=== PATIENT | male | born 1965 | race Caucasian/White ===

== ENCOUNTER 2022-09-27 23:13 | Emergency (ER) | payer BC, SELFPAY ==
--- NOTE | 2022-09-27 23:19 | ECG_ITS ---
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 Measurements Intervals [place] Rate: 99 P: 31 CO: 166 QRS: 22 QRSD: 94 T: 72 QT: 323 QTc: 415 Interpretive Statements SINUS RHYTHM WITH SINUS ARRHYTHMIA POSSIBLE RIGHT VENTRICULAR CONDUCTION DELAY [RSR (QR) IN V1/V2] MODERATE ST DEPRESSION [0.05+ mV ST DEPRESSION] No previous ECG available for comparison Electronically Signed On 09-29-2022 1:31:15 CDT by Lynda Griffiths M.D. [id number]
[2022-09-27 23:20] VITALS: BP 148/93; PULSE 101; RESP 16; O2SAT 92; BMI 31.4
--- NOTE | 2022-09-27 23:20 | XRR_ITS ---
PROCEDURE INFORMATION: Exam: XR Chest Exam date and time: 09/27/2022 11:31 PM Age: 56 years old Clinical indication: Pain; Chest pressure; Additional info: Cp TECHNIQUE: Imaging protocol: Radiologic exam of the chest. Views: 1 view. COMPARISON: No relevant prior studies available. FINDINGS: Lungs: Unremarkable. No consolidation. Pleural spaces: Unremarkable. No pleural effusion. No pneumothorax. Heart/Mediastinum: Unremarkable. No cardiomegaly. Bones/joints: Unremarkable. XR/XR chest 1V portable [id number] IMPRESSION: No acute findings.
--- NOTE | 2022-09-27 23:23 | W.ED.CHESTPA ---
HPI - Chest Pain General: Chief Complaint: Chest Pain Stated Complaint: CP Time Seen by Provider: 09/27/22 23:16 Source: patient and EMS Mode of arrival: EMS Limitations: no limitations History of Present Illness: 56-year-old male who states that he has been having chest pain throughout the day today starting around noon he states over the last 45 minutes it got much worse he states is a real tight sharp pain in the center of his chest it was a 9 out of 10 earlier he states he has felt like he cannot get a deep breath in either he denies any cough or fever he did receive aspirin nitro in route states the pain is lessened but still there he rates it a 6 out of 10 he states he was a former smoker roughly 25 years ago no history of heart disease does have high blood pressure. Associated symptoms: Reports dyspnea; Deny abdominal pain, fever(s), nausea or vomiting Review of Systems Const: Denies: fever(s), chills, body aches or change in appetite Eyes: Denies: eye discomfort ENMT: Denies: throat pain or dental pain Card: Reports: chest pain Resp: Reports: dyspnea GI: Denies: abdominal pain, nausea, vomiting or diarrhea Musc: Denies: neck pain or back pain Skin/Breast: Denies: rash Neuro: Denies: headache(s) Psych: Denies: depression PFSH ED PFSH: Medical History (Updated 09/28/22 @ 03:43 by Elvin Parish MD) Hypertension Social History (Updated 09/27/22 @ 23:24 by Elvin Parish MD) Smoking and tobacco status: former smoker Substance/Drug Use: never Physical Exam Const: COMMON NORMALS: patient oriented x3 HENMT: COMMON NORMALS: normocephalic and atraumatic HEAD & SCALP: normocephalic and atraumatic Eye: COMMON NORMALS: conjunctivae normal CONJUNCTIVA: Yes conjunctivae normal Neck/C-Spine: COMMON NORMALS: full ROM and supple Chest: COMMONS NORMALS: normal inspection of the chest and normal palpation of entire chest wall Resp: COMMON NORMALS: normal respiratory effort, No retractions, No use of accessory muscles and clear to auscultation bilaterally AUSCULTATION: clear to auscultation bilaterally Cardio: COMMON NORMALS: regular rhythm and No murmurs present (Cardio) RATE: tachycardic RHYTHM: regular rhythm GI: COMMON NORMALS: Normal to inspection, nondistended, normoactive bowel sounds present, Soft to palpation, non-tender and no masses PALPATION: Yes Soft to palpation Extremity: COMMON NORMALS: normal to inspection and full ROM Neuro: COMMON NORMALS: patient oriented x3, moves all extremities and no focal motor deficits Psych: COMMON NORMALS: mental status grossly normal, Normal thought process present and cooperative THOUGHT PROCESS: Normal thought process present Skin: COMMON NORMALS: no rashes or lesions noted and no wounds GENERAL SKIN EXAM: no rashes or lesions noted Course Vital Signs: Vital signs: Vital Signs Pulse Rate 82 09/28/22 02:45 Respiratory Rate 16 09/28/22 02:45 Blood Pressure 120/84 09/28/22 02:45 Pulse Oximetry 94 09/28/22 02:45 Oxygen Delivery Me thod Nasal Cannula 09/28/22 00:55 Oxygen Flow Rate 2 09/28/22 00:55 MDM - Chest Pain Medical Decision Making Patient presents here with chest pains atypical in nature its with deep breaths that sounds pleuritic in nature CTA showed no signs of pulmonary embolism troponins are normal he is in no signs of acute coronary syndrome we will get him follow-up with a PCP we will prescribe him Naprosyn he is return if his pain worsens he understands agrees to plan. Lab Data 09/27/22 23:30 09/27/22 23:30 Radiology Impressions Chest X-Ray 09/27/22 23:20 IMPRESSION: No acute findings. Chest CTA 09/28/22 00:58 IMPRESSION: 1. No CTA evidence of pulmonary embolism, thoracic aortic aneurysm or thoracic aortic dissection. 2. Small lung volumes with mild hypoaeration of the lungs and bilateral basilar atelectasis. Abdomen/Pelvis CT 09/28/22 01:23 IMPRESSION: 1. No acute abnormality seen on the non-contrast abdominal and pelvic CT. 2. Mild constipation. 3. Other chronic changes, as noted above. Laboratory Results WBC 9.8 10^3/uL (4.0-10.0) 09/27/22 23:30 RBC 5.12 10^6/uL (4.1-5.3) 09/27/22 23:30 Hgb 15.2 g/dL (11.7-16.6) 09/27/22 23:30 Hct 43.1 % (42.0-52.0) 09/27/22 23: MCV 84.2 fl (80-94) 09/27/22 23: MCH 29.7 pg (28.0-34.0) 09/27/22: MCHC 35.3 g/dL (30.0-36.0) 09/27/22: RDW 12.8 % (12.1-15.1) 09/27/22: Plt Count 215 10^3/cmm (130-400) 09/27/22: MPV 9.4 fL (7.4-10.4) 09/27/22: Neut % (Auto) 70.5 % 09/27/22: Lymph % (Auto) 17.6 % 09/27/22: [place] % (Auto) 8.5 % 09/27/22: Eos % (Auto) 2.4 % 09/27/22: Baso % (Auto) 0.6 % 09/27/22 Neut # (Auto) 6.89 10^3/uL (1.8-7.7) 09/27/22: Lymph # (Auto) 1.7 10^3/uL (0.8-4.8) 09/27/22: [place] # (Auto) 0.8 10^3/uL (0.2-0.9) 09/27/22: Eos # (Auto) 0.2 10^3/uL (0.0-0.8) 09/27/22 Baso # (Auto) 0.1 10^3/uL (0.0-0.1) 09/27/22: Nucleated RBC % (auto) 0 % 09/27/22 Nucleated RBCs # 0.0 /100WBC 09/27/22: PT 13.50 SECONDS (12.1-14.9) 09/27/22: INR 1.00 (0.8-1.2) 09/27/22 23: D-Dimer 0.37 ug/mIFEU (0-0.59) 09/27/22 23: Specimen Type Arterial 09/28/22 00:42 Sample Site Brachial, right 09/28/22 00:42 ABG pH 7.39 (7.35-7.45) 09/28/22 00:42 ABG pCO2 40.5 mmHg (35-45) 09/28/22 00:42 ABG pO2 75.7 mmHg (80.0-100.0) L 09/28/22 00:42 ABG HCO3 24.7 mmol/L (22-26) 09/28/22 00:42 ABG Base Excess -0.2 mmol/L (-2.0-2.0) 09/28/22 00:42 Tone Test Pos 09/28/22 00:42 Hematocrit 47.4 % (42-52) 09/28/22 00:42 O2 Delivery Device Nc 09/28/22 00:42 O2 Liters/Min 2.0 % 09/28/22 00:42 Director Clinical Research ID [email or web address] 09/28/22 00:42 Sodium 135 mmol/L (136-145) L 09/27/22 23:30 Potassium 4.0 mmol/L (3.5-5.1) 09/27/22 23:30 Chloride 102 mmol/L (98-107) 09/27/22 23:30 Carbon Dioxide 23 mmol/L (22-29) 09/27/22 23:30 Anion Gap 14.0 (5-19) 09/27/22 23:30 BUN 10 mg/dL (6-20) 09/27/22 23:30 Creatinine 0.8 mg/dL (0.7-1.2) 09/27/22 23:30 GFR Calculation 99.3 mL/min (90-130) 09/27/22 23:30 Glucose 155 mg/dL (65-115) H 09/27/22 23:30 Calculated Osmolality 282 mOsm/kg (285-295) L 09/27/22 23:30 Calcium 8.9 mg/dL (8.5-10.5) 09/27/22 23:30 Total Bilirubin 1.5 mg/dL (0.15-1.2) H 09/27/22 23:30 AST 16 U/L (0-40) 09/27/22 23:30 ALT 26 U/L (0-41) 09/27/22 23:30 Alkaline Phosphatase 67 U/L (40-130) 09/27/22 23:30 Troponin T Baseline 19 ng/L (0-15) H 09/27/22 23:30 Troponin T 120 Minute 16.49 ng/L (0-15) H 09/28/22 02:23 Delta Troponin T -2.51 ABS# (0-10) L 09/28/22 02:23 NT-Pro-B Natriuret Pep 47 pg/mL (0-125) 09/27/22 23:30 Total Protein 6.4 g/dL (6.6-8.7) L 09/27/22 23:30 Albumin 3.9 g/dL (3.5-5.2) 09/27/22 23:30 Globulin 2.5 g/dL (1.3-4.6) 09/27/22 23:30 Discharge Plan Discharge Patient Disposition: Home Clinical Impression: Chest pain Prescriptions: New Naprosyn 500 mg tablet 500 mg PO BID PRN (Reason: pain) Qty: 20 0RF Discharge Orders: Discharge ED (Routine); Ordered 09/28/22 Ordered By: Elvin Parish Discharge Diet: Advance as tolerated Discharge Activity: Resume usual activity Patient Instructions: Chest Pain (ED) Coding Level of Care Code ED Operations Specialist for Bernardo Gunter
[2022-09-27 23:26] VITALS: RESP 19
[2022-09-27] MEDS: morphine 4 mg/mL SDV 1 mL IVP (23:26)
[2022-09-27] MEDS: ondansetron 2 mg/ML SDV 2 mL 4 MG IVP (23:26)
[2022-09-27 23:34] VITALS: BP 144/75; PULSE 94; RESP 16; O2SAT 91
[2022-09-27 23:44] LABS: Basophils # 0.1 10^3/uL (0.0-0.1); Basophils % 0.6 %; Eosinophils # 0.2 10^3/uL (0.0-0.8); Eosinophils % 2.4 %; Hematocrit 43.1 % (42.0-52.0); Hemoglobin 15.2 g/dL (11.7-16.6); Lymphocytes # 1.7 10^3/uL (0.8-4.8); Lymphocytes % 17.6 %; Mean Corpuscular HGB Conc 35.3 g/dL (30.0-36.0); Mean Corpuscular Hemoglobin 29.7 pg (28.0-34.0); Mean Corpuscular Volume 84.2 fl (80-94); Mean Platelet Volume 9.4 fL (7.4-10.4); Monocytes # 0.8 10^3/uL (0.2-0.9); Monocytes % 8.5 %; Neutrophils # 6.89 10^3/uL (1.8-7.7); Neutrophils % 70.5 %; Nucleated Red Blood Cells % 0 %; Platelet Count 215 10^3/cmm (130-400); Red Blood Count 5.12 10^6/uL (4.1-5.3); Red Cell Distribution Width 12.8 % (12.1-15.1); White Blood Count 9.8 10^3/uL (4.0-10.0)
[2022-09-28 00:04] LABS: D Dimer 0.37 ug/mIFEU (0-0.59)
[2022-09-28 00:12] LABS: Troponin(5th) Baseline 19 ng/L (0-15)
[2022-09-28 00:19] LABS: Alanine Aminotransferase 26 U/L (0-41); Albumin Level 3.9 g/dL (3.5-5.2); Alkaline Phosphatase 67 U/L (40-130); Aspartate Amino Transferase 16 U/L (0-40); Blood Urea Nitrogen 10 mg/dL (6-20); Calcium 8.9 mg/dL (8.5-10.5); Carbon Dioxide 23 mmol/L (22-29); Chloride 102 mmol/L (98-107); Globulin 2.5 g/dL (1.3-4.6); Glomerular Filtration Rate 99.3 mL/min (90-130); Glucose 155 mg/dL (65-115); NT Pro B Type Natriuretic Pept 47 pg/mL (0-125); Osmolality Calculated 282 mOsm/kg (285-295); Sodium 135 mmol/L (136-145); Total Bilirubin 1.5 mg/dL (0.15-1.2); Total Protein 6.4 g/dL (6.6-8.7)
[2022-09-28 00:30] VITALS: BP 122/85; PULSE 85; RESP 15; O2SAT 97
[2022-09-28 00:53] LABS: ABG PCO2 40.5 mmHg (35-45); ABG PH Result 7.39 (7.35-7.45); Arterial Blood Gas Hematocrit 47.4 % (42-52); Base Excess ABG -0.2 mmol/L (-2.0-2.0); Blood Gas Allen Test Pos; Blood Gas Sample Site Brachial, right; Blood Gas Sample Type Arterial; HCO3 ABG 24.7 mmol/L (22-26); Oxygen Device NC; PO2 ABG 75.7 mmHg (80.0-100.0)
[2022-09-28 00:55] VITALS: O2SAT 94
--- NOTE | 2022-09-28 00:58 | CTR_ITS ---
PROCEDURE INFORMATION: Exam: CTA Chest With Contrast Exam date and time: 09/28/2022 1:18 AM Age: 56 years old Clinical indication: Shortness of breath; Additional info: SOB TECHNIQUE: Imaging protocol: Computed tomographic angiography of the chest with contrast. 3D rendering (Not supervised by radiologist): MIP and/or 3D reconstructed images were created by the technologist. Radiation optimization: All CT scans at this facility use at least one of these dose optimization techniques: automated exposure control; mA and/or kV adjustment per patient size (includes targeted exams where dose is matched to clinical indication); or iterative reconstruction. Contrast material: OMNI 350; Contrast volume: 100 ml; Contrast route: INTRAVENOUS (IV); REPORTING DATA: Count of CT and Cardiac NM exams in prior 12 months: This patient has received 0 known CTs and 0 known cardiac nuclear medicine studies in the 12 months prior to the current study. COMPARISON: CR (CHEST, ) 09/27/2022 11:31 PM RADIATION DOSE METRICS: Total DLP (mGy-cm): 469.5 FINDINGS: Pulmonary arteries: No CT evidence for segmental pulmonary emboli. The main pulmonary arteries and outflow trunk are unremarkable. Aorta: No thoracic aortic aneurysm. No thoracic aortic dissection. Trachea: The central airway is normal. Lungs: Mildly decreased lung volumes. Minimal hazy ground-glass opacities in both lungs, suggestive of hypoaeration. Minimal platelike atelectasis in the inferior lingula and bilateral lower lobe regions. Left lower lobe posterior 1.4 x 1.4 cm nodule with central dense calcification. This is suggestive of a pulmonary hamartoma. No other lung nodule seen. No regions of consolidation. No interlobular septal thickening or honeycombing seen to suggest interstitial lung disease on CT. Pleural spaces: No pneumothorax. No pleural effusion. Heart: The heart size is within normal limits. The RV/LV ratio is normal at 1 (no CT evidence of RV strain). There is no pericardial effusion. Minimal left coronary arterial atherosclerotic vascular calcifications. Lymph nodes: Prominent calcified bilateral hilar, aortopulmonic window and subcarinal lymph nodes are seen, representing old granulomatous disease. Bones/joints: Medium to large sized confluent degenerative osteophytes and mild degenerative disc disease changes are seen throughout the thoracic spine. Soft tissues: Unremarkable. Other findings: Right hepatic lobe 6.3 x 8.4 x 8.2 cm cyst is seen with Hounsfield units of 4.6 HU. Gallbladder not well distended. Possible minimal gallbladder sludge. CT/CT angio chest PE protcl [id number] IMPRESSION: 1. No CTA evidence of pulmonary embolism, thoracic aortic aneurysm or thoracic aortic dissection. 2. Small lung volumes with mild hypoaeration of the lungs and bilateral basilar atelectasis.
[2022-09-28 01:00] VITALS: BP 138/86; PULSE 77; O2SAT 91
--- NOTE | 2022-09-28 01:05 | ECG_ITS ---
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 Measurements Intervals [place] Rate: 76 P: 31 NV: 163 QRS: 20 QRSD: 102 T: 52 QT: 358 QTc: 403 Interpretive Statements SINUS RHYTHM POSSIBLE RIGHT VENTRICULAR CONDUCTION DELAY [RSR (QR) IN V1/V2] ST ELEVATION, PROBABLY EARLY REPOLARIZATION [ST ELEVATION WITH NORMALLY INFLECTED T-WAVE] Compared to ECG 09/27/2022 23:19:05 Early repolarization now present Sinus arrhythmia no longer present ST (T wave) deviation still present Electronically Signed On 09-29-2022 22:13:18 CDT by Lynda Griffiths M.D. [id number]
--- NOTE | 2022-09-28 01:23 | CTR_ITS ---
PROCEDURE INFORMATION: Exam: CT Abdomen And Pelvis Without Contrast Exam date and time: 09/28/2022 1:23 AM Age: 56 years old Clinical indication: Abdominal pain; Generalized TECHNIQUE: Imaging protocol: Computed tomography of the abdomen and pelvis without contrast. Radiation optimization: All CT scans at this facility use at least one of these dose optimization techniques: automated exposure control; mA and/or kV adjustment per patient size (includes targeted exams where dose is matched to clinical indication); or iterative reconstruction. REPORTING DATA: Count of CT and Cardiac NM exams in prior 12 months: This patient has received 0 known CTs and 0 known cardiac nuclear medicine studies in the 12 months prior to the current study. COMPARISON: CT angio chest PE protcl [id number] 09/28/2022 1:18 AM RADIATION DOSE METRICS: Total DLP (mGy-cm): 469.5 FINDINGS: Liver: Normal enhancement of the liver with normal hepatic veins and portal veins. Right hepatic lobe 6.3 x 8.4 x 8.2 cm simple appearing cyst is seen with Hounsfield units of 4.6 HU. Gallbladder and bile ducts: Minimal dependent heterogeneous attenuation of the gallbladder is seen, which may represent minimal sludge. No gallbladder wall thickening. No biliary ductal dilatation. Pancreas: Unremarkable CT appearance of the pancreatic parenchyma. No ductal dilatation. Spleen: Normal splenic parenchymal attenuation. No splenomegaly. Adrenal glands: Normal CT appearance of the adrenals. No mass. Kidneys and ureters: Normal renal contour. No mass seen. No hydronephrosis. Contrast filling of the renal collecting systems is seen with some contrast opacification of the ureters. No gross abnormality seen. Stomach and bowel: The noncontrast opacified stomach appears unremarkable. The noncontrast opacified small bowel loops appear unremarkable. The noncontrast opacified loops of colon show mild constipation. A few sigmoid colonic diverticula are seen, without CT evidence of diverticulitis. The lack of orally administered contrast material limits assessment. Appendix: No appendix is specifically identified. No CT evidence of fluid collections or inflammatory stranding adjacent to the cecum. Intraperitoneal space: No abdominal ascites. No free air. Vasculature: No abdominal aortic aneurysm. Inferior vena cava and portal vein appear unremarkable. Lymph nodes: No enlarged lymph nodes. Urinary bladder: No bladder debris. No wall thickening. Reproductive: Unremarkable as visualized. Bones/joints: No acute osseous abnormality seen. Small to medium-sized Schmorl's nodes are seen in the lower thoracic region. Small degenerative osteophytes are seen throughout the thoracic spine. Severe L5-S1 disc space narrowing is seen, suggestive of degenerative disc disease change. Degenerative facet disease changes are seen throughout the lumbar spine, severe at the L5-S1 level. Severe bilateral L5-S1 foraminal stenosis. Mild bilateral hip degenerative changes. Severe right and moderate left sacroiliac joint degenerative changes. Soft tissues: Medium-sized left and small right inguinal hernias are seen, containing peritoneal fat. Other findings: Please see the separately generated report from the CT chest exam done concurrently for chest findings. CT/CT abdomen pelvis wo con [id number] IMPRESSION: 1. No acute abnormality seen on the non-contrast abdominal and pelvic CT. 2. Mild constipation. 3. Other chronic changes, as noted above.
[2022-09-28] MEDS: iohexol 350 mg/mL 500 mL Btl (per mL) IV (01:24)
[2022-09-28 02:45] VITALS: BP 120/84; PULSE 82; RESP 16; O2SAT 94
[2022-09-28 03:00] LABS: Troponin 5 2HR 16.49 ng/L (0-15); Troponin 5 2HR Delta -2.51 ABS# (0-10)
[2022-09-28 03:45] VITALS: BP 124/85; PULSE 81; RESP 16; O2SAT 96
[2022-09-28] MEDS: ketorolac 30 mg/mL INJ 15 MG IVP (03:47)
[2022-09-28 03:49] VITALS: TEMP 36.6
--- NOTE | 2022-09-28 10:27 | DCPLANNER ---
cargo and ramp services manager called patient due to no primary care physician - patient declines at this time, does not live in the area
== END 2022-09-28 03:55 | disposition home or self-care (01) ==
PROVIDERS: Emergency Provider Emergency Medicine
DX: R07.9 Chest pain, unspecified (principal); I10 Essential (primary) hypertension; Z87.891 Personal history of nicotine dependence
CPT/HCPCS: 36415; 36600; 71045; 71275; 74176; 80053; 82803; 83880; 84484; 85025; 85378; 85610; 93005; 96374; 96375; 99285; J1885; J2270; J2405; Q9967